=== PATIENT | male | born 1975 | race Caucasian/White ===

== ENCOUNTER 2017-03-19 10:28 | Inpatient (IN) | payer OTHER ==
[~2017-03-19] VITALS: Ht 172.7 cm; Wt 113.7 kg
[2017-03-19 13:50] LABS: RED BLOOD COUNT 4.63 M/UL (4.20-5.50); WHITE BLOOD COUNT 15.3 K/UL (4.5-11.0)
[2017-03-19 14:08] LABS: BUN/CREATININE RATIO 17 (0-10)
[2017-03-19] MEDS ORDERED: SUBOXONE 8 MG-1 EACH SL (17:50)
[2017-03-20 05:44] LABS: HEMOGLOBIN 13.5 gm/dl (14.0-17.5); RED BLOOD COUNT 4.5 M/UL (4.20-5.50); WHITE BLOOD COUNT 13.3 K/UL (4.5-11.0)
[2017-03-20 06:10] LABS: BUN/CREATININE RATIO 15 (0-10)
--- NOTE | 2017-03-20 15:41 | NUR ---
WHEN I RECEIVED REPORT ON THE PATIENT COMING BACK FROM [place], THE NURSE TOLD ME THAT HE HAD TAKEN SUBOXONE THIS MORNING. I DID NOT GIVE HIM SUBOXONE AND DID NOT KNOW THAT HE HAD IT WITH HIM. I TOOK THE SUBOXONE THAT THE PATIENT HAD LEFT IN HIS ROOM AND HAD PHARMACY PUT IT IN THE OMNICELL. I CALLED AND ASKED FOR SOME IBUPROFEN FOR THE PATIENT.
[2017-03-21 05:59] LABS: BUN/CREATININE RATIO 17 (0-10)
--- NOTE | 2017-03-21 10:15 | NUR ---
PATIENT REFUSED TO LET ME DO HIS MORNING DRESSING CHANGE. DRESSING IS SUPPOSED TO BE CHANGED BID. RIGHT HAND IS SUPPOSED TO HAVE PACKING REMOVED AND REPLACED. HAND IS SUPPOSED TO SOAK IN HIBICLENS/WARM SOAPY WATER FOR 20 MINUTES. PATIENT STATED THAT HE CANNOT STAND IT MORE THAN ONCE A DAY AND DID NOT WANT TO DO THE DRESSING CHANGE THIS MORNING. I EXPLAINED THE IMPORTANCE OF THE DRESSING CHANGE AND THAT THE ORTHO DOCTOR HAD IT ORDERED TWICE A DAY BUT HE STILL REFUSED.
[2017-03-22 04:18] LABS: HEMOGLOBIN 11.9 gm/dl (14.0-17.5)
[2017-03-22 04:25] LABS: RED BLOOD COUNT 3.99 M/UL (4.20-5.50); WHITE BLOOD COUNT 8.2 K/UL (4.5-11.0)
[2017-03-22 04:36] LABS: BUN/CREATININE RATIO 17 (0-10)
[2017-03-22] MEDS ORDERED: TRAMADOL HCL50 MG PO (14:21)
[2017-03-22] MEDS ORDERED: IBUPROFEN600 MG PO (14:22)
[2017-03-22] MEDS ORDERED: VIBRAMYCIN100 MG PO (14:22)
== END 2017-03-22 14:54 | disposition home or self-care (01) | DRG 571 ==
LOC: ER1 10:28 → MED SURG 4 15:00 → ZEROF 15:00 → MED SURG 4 17:47
PROVIDERS: Emergency Medicine; Orthopaedic Surgery; ADMIT Internal Medicine
PROC: 0HQJXZZ Repair Left Upper Leg Skin, External Approach (ICD-10-PCS; 2017-03-20)
PROC: 0JBJ0ZZ Excision of Right Hand Subcutaneous Tissue and Fascia, Open Approach (ICD-10-PCS; principal; 2017-03-20 13:15)
PROC: 0JBM0ZZ Excision of Left Upper Leg Subcutaneous Tissue and Fascia, Open Approach (ICD-10-PCS; 2017-03-20 13:15)
DX: L03.113 Cellulitis of right upper limb (principal); L03.116 Cellulitis of left lower limb; L02.511 Cutaneous abscess of right hand; L02.416 Cutaneous abscess of left lower limb; F19.10 Other psychoactive substance abuse, uncomplicated; B18.2 Chronic viral hepatitis C; F41.9 Anxiety disorder, unspecified; Z86.14 Personal history of Methicillin resistant Staphylococcus aureus infection; Z79.891 Long term (current) use of opiate analgesic; Z83.3 Family history of diabetes mellitus
CPT/HCPCS: 36415; 71010; 73200; 80048; 80053; 80202; 80307; 82550; 83605; 85025; 85027; 86140; 87015; 87040; 87070; 87075; 87102; 87116; 87205; 96365; 96366; 99284; J1335; J2250; J3010; J3370; J7030; J7050; J7070; J7120

== ENCOUNTER 2022-04-07 12:40 | Observation (INO) | payer OTHER ==
[~2022-04-07] VITALS: Ht 172.7 cm; Wt 113.4 kg
[~2022-04-07 12:40] MED LIST: IBUPROFEN600 MG PO; SUBOXONE 8 MG-1 EACH SL; TRAMADOL HCL50 MG PO; VIBRAMYCIN100 MG PO
[2022-04-07 14:35] LABS: HEMOGLOBIN 15.4 gm/dl (14.0-17.5); RED BLOOD COUNT 4.85 M/UL (4.20-5.50); WHITE BLOOD COUNT 13.8 K/UL (4.5-11.0)
[2022-04-07 15:07] LABS: BUN/CREATININE RATIO 14 (0-10)
[2022-04-08] MEDS ORDERED: TYLENOL 8 HOUR650 MG PO (11:45)
[2022-04-08] MEDS ORDERED: CEPHALEXIN500 MG PO (11:45)
--- NOTE | 2022-04-08 11:47 | NUR ---
1145: DR TODD VISITS, REQUEST SUPPLIES TO CHANGE DRESSING TO LEFT HAND. DR TODD REMOVES PACKING WITH AREA REVEALED APPROXIMATELY QUARTER SIZE IN DIAMETER AND APPROXIMATELY 2.5 CM DEEP. PATIENT WAS INSTRUCTED BY DR TODD TO ALLOW SHOWER WATER TO RINSE OVER WOUND, PAT DRY, PACK END OF 4 X 4 INTO WOUND AND COVER WITH 4 X4'S. WRAP WITH ROLLED GAUZE AND COVER WITH EFE WRAP. CHANGE DRESSING DAILY. EDGES OF WOUND NOTED WITH RIM MACERATION AND THEN ENCIRCLED WITH DARK PURPLISH BLACK EDGES.
== END 2022-04-08 13:53 | disposition home or self-care (01) ==
LOC: ER1 12:40 → M/S 14:51 → CDU 14:51 → M/S 17:07
PROVIDERS: Emergency Medicine; ADMIT Surgery
PROC: 0H9GXZZ Drainage of Left Hand Skin, External Approach (ICD-10-PCS; principal; 2022-04-07 16:06)
DX: L02.512 Cutaneous abscess of left hand (principal); I10 Essential (primary) hypertension; K21.9 Gastro-esophageal reflux disease without esophagitis; H54.7 Unspecified visual loss; F17.210 Nicotine dependence, cigarettes, uncomplicated; G40.909 Epilepsy, unspecified, not intractable, without status epilepticus
CPT/HCPCS: 73130; 80053; 85025; 85652; 86140; 87040; 87070; 87205; 96374; 96375; 96376; 99284; G0378; J0690; J1100; J1885; J2001; J2270; J2405; J2704; J2765; J3370; J7030; J7120